=== PATIENT | female | born 1975 | race Caucasian/White ===

== ENCOUNTER 2019-08-11 21:05 | Emergency (ER) | payer MEDICAID ==
[~2019-08-11] VITALS: Ht 165.1 cm; Wt 68.2 kg
[2019-08-11] MEDS ORDERED: IBUP-1984 PO (22:29)
[2019-08-11] MEDS ORDERED: AMOX-580 PO (22:29)
[2019-08-11 22:33] VITALS: BP 129/84
== END 2019-08-11 22:37 | disposition home or self-care (01) ==
LOC: ER 21:06
DX: J06.9 Acute upper respiratory infection, unspecified (principal); J32.0 Chronic maxillary sinusitis; I10 Essential (primary) hypertension; J45.909 Unspecified asthma, uncomplicated; Z88.5 Allergy status to narcotic agent; Z88.6 Allergy status to analgesic agent
CPT/HCPCS: 99284

== ENCOUNTER 2019-08-11 22:59 | Emergency (ER) | payer MEDICAID ==
[~2019-08-11] VITALS: Ht 165.1 cm; Wt 68.2 kg
[~2019-08-11 22:59] MED LIST: AMOX-580 PO; IBUP-1984 PO
[2019-08-11 23:18] VITALS: BP 153/84
[2019-08-12 00:05] LABS: URINE HCG NEGATIVE (NEG)
--- NOTE | 2019-08-12 00:16 | NUR ---
Pt. returning for a chest x-ray after recent discharge
== END 2019-08-12 01:07 | disposition home or self-care (01) ==
LOC: ER 23:00
DX: Z00.00 Encounter for general adult medical examination without abnormal findings (principal); I10 Essential (primary) hypertension; J45.909 Unspecified asthma, uncomplicated; Z88.5 Allergy status to narcotic agent; Z88.6 Allergy status to analgesic agent
CPT/HCPCS: 81025; 99284

== ENCOUNTER 2019-08-24 01:57 | Emergency (ER) | payer MEDICAID ==
[~2019-08-24] VITALS: Ht 165.1 cm; Wt 70.0 kg
[2019-08-24 03:07] LABS: BASOPHILS # (AUTO) 0.1 X10'3 (0-0.2); BASOPHILS % (AUTO) 0.7 % (0-1); EOSINOPHILS # (AUTO) 0.1 X10'3 (0-0.9); EOSINOPHILS % (AUTO) 1.1 % (0-6); HEMATOCRIT 40.7 % (35.0-45.0); HEMOGLOBIN 13.6 g/dl (12.0-16.0); LYMPHOCYTES % (AUTO) 26.7 % (21-51); MEAN CORPUSCULAR HEMOGLOBIN 28.7 PG (27.0-31.0); MEAN CORPUSCULAR HGB CONC 33.3 g/dL (33.0-36.5); MEAN CORPUSCULAR VOLUME 85.9 FL (78-98); MONOCYTES # (AUTO) 0.4 X10'3 (0-0.9); MONOCYTES % (AUTO) 5.4 % (2-12); NEUTROPHILS # (AUTO) 4.9 X10'3 (1.8-7.7); NEUTROPHILS % (AUTO) 66.1 % (42-75); PLATELET COUNT 210 X10'3 (140-440); RED BLOOD COUNT 4.73 X10'6 (4.20-5.60); RED CELL DISTRIBUTION WIDTH 13.8 % (11.5-14.5); WHITE BLOOD COUNT 7.5 X10'3 (4.5-11.0)
[2019-08-24 03:15] LABS: ALANINE AMINOTRANSFERASE 20 U/L (12-78); ALBUMIN 3.3 G/DL (3.4-5.0); ALBUMIN/GLOBULIN RATIO 0.8 (1.1-1.5); ALKALINE PHOSPHATASE 71 IU/L (46-116); ANION GAP 7 (8-16); ASPARTATE AMINO TRANSFERASE 16 U/L (10-37); BILIRUBIN,TOTAL 0.1 MG/DL (0.1-1.0); BLOOD UREA NITROGEN 13 MG/DL (7-18); BUN/CREATININE RATIO 20.6 (6.6-38.0); CALCIUM 8.3 MG/DL (8.5-10.1); CHLORIDE 105 MMOL/L (99-107); CREATININE 0.63 MG/DL (0.40-0.90); GLUCOSE 96 MG/DL (70-104); POTASSIUM 3.5 MMOL/L (3.5-5.1); SODIUM 139 MMOL/L (135-145); TOTAL CARBON DIOXIDE 26.9 MMOL/L (24-32); TOTAL PROTEIN 7.2 G/DL (6.4-8.2); eGFR > 90 ML/MIN
[2019-08-24] MEDS ORDERED: AZIT-63 PO (03:28)
[2019-08-24] MEDS ORDERED: ALBU8.5H8 IH (03:28)
[2019-08-24] MEDS ORDERED: ketorolac trometh. 30mg/ml inj. IM ONE (03:30)
[2019-08-24] MEDS ORDERED: azithromycin 250mg tablet PO ONE (03:30)
[2019-08-24 03:48] VITALS: BP 121/77
== END 2019-08-24 03:50 | disposition home or self-care (01) ==
LOC: ER 01:58
DX: J40 Bronchitis, not specified as acute or chronic (principal); I10 Essential (primary) hypertension; Z87.09 Personal history of other diseases of the respiratory system; F17.210 Nicotine dependence, cigarettes, uncomplicated; Z98.890 Other specified postprocedural states; Z88.5 Allergy status to narcotic agent; Z88.6 Allergy status to analgesic agent; Z79.899 Other long term (current) drug therapy
CPT/HCPCS: 36415; 71046; 80053; 85025; 87040; 93005; 96372; 99284; J1885

== ENCOUNTER 2019-09-08 13:29 | Emergency (ER) | payer MEDICAID ==
[~2019-09-08] VITALS: Ht 165.1 cm; Wt 62.0 kg
[~2019-09-08 13:29] MED LIST changes: +ALBU8.5H8 IH; -AMOX-580 PO; +AZIT-63 PO; -IBUP-1984 PO
[2019-09-08] MEDS ORDERED: CLIN-90 PO (14:33)
[2019-09-08 14:46] VITALS: BP 130/90
== END 2019-09-08 14:54 | disposition home or self-care (01) ==
LOC: ER 13:29
DX: R22.0 Localized swelling, mass and lump, head (principal); R06.02 Shortness of breath; K08.89 Other specified disorders of teeth and supporting structures; I10 Essential (primary) hypertension; F17.210 Nicotine dependence, cigarettes, uncomplicated; Z87.440 Personal history of urinary (tract) infections; Z88.5 Allergy status to narcotic agent; Z88.6 Allergy status to analgesic agent; Z79.899 Other long term (current) drug therapy
CPT/HCPCS: 99284

== ENCOUNTER 2019-09-16 14:15 | Emergency (ER) | payer MEDICAID ==
[~2019-09-16] VITALS: Ht 165.1 cm; Wt 68.2 kg
[~2019-09-16 14:15] MED LIST changes: -AZIT-63 PO; +CLIN-90 PO
[2019-09-16] MEDS ORDERED: METH-360 PO (14:18)
[2019-09-16] MEDS ORDERED: ketorolac tromethamine 15mg/ml inj. IM ONE (14:20)
[2019-09-16 14:24] VITALS: BP 162/90
== END 2019-09-16 15:08 | disposition home or self-care (01) ==
LOC: ER 14:15
DX: S39.012A Strain of muscle, fascia and tendon of lower back, initial encounter (principal); S29.012A Strain of muscle and tendon of back wall of thorax, initial encounter; I10 Essential (primary) hypertension; J45.909 Unspecified asthma, uncomplicated; M06.9 Rheumatoid arthritis, unspecified; Z88.5 Allergy status to narcotic agent; Z79.2 Long term (current) use of antibiotics; X58.XXXA Exposure to other specified factors, initial encounter; Y93.89 Activity, other specified; Y92.89 Other specified places as the place of occurrence of the external cause; Y99.9 Unspecified external cause status
CPT/HCPCS: 96372; 99284; J1885

== ENCOUNTER 2019-09-27 14:56 | Emergency (ER) | payer MEDICAID ==
[~2019-09-27] VITALS: Ht 165.1 cm; Wt 77.6 kg
[~2019-09-27 14:56] MED LIST changes: +METH-360 PO
[2019-09-27 15:08] VITALS: BP 104/61
[2019-09-27 16:21] LABS: BASOPHILS % (AUTO) 0.6 % (0-1); EOSINOPHILS # (AUTO) 0.1 X10'3 (0-0.9); EOSINOPHILS % (AUTO) 0.9 % (0-6); HEMATOCRIT 40.5 % (35.0-45.0); HEMOGLOBIN 13.7 g/dl (12.0-16.0); LYMPHOCYTES # (AUTO) 1.2 X10'3 (1.1-4.8); LYMPHOCYTES % (AUTO) 15.4 % (21-51); MEAN CORPUSCULAR HEMOGLOBIN 29.2 PG (27.0-31.0); MEAN CORPUSCULAR HGB CONC 33.8 g/dL (33.0-36.5); MEAN CORPUSCULAR VOLUME 86.3 FL (78-98); MONOCYTES # (AUTO) 0.4 X10'3 (0-0.9); MONOCYTES % (AUTO) 4.9 % (2-12); NEUTROPHILS % (AUTO) 78.2 % (42-75); PLATELET COUNT 213 X10'3 (140-440); RED BLOOD COUNT 4.69 X10'6 (4.20-5.60); RED CELL DISTRIBUTION WIDTH 14.4 % (11.5-14.5); WHITE BLOOD COUNT 7.6 X10'3 (4.5-11.0)
[2019-09-27 16:22] LABS: CLARITY,URINE SLIGHTLY CLOUDY (Clear); COLOR,URINE YELLOW (Yellow); GLUCOSE, URINE NEGATIVE (Neg); KETONES,URINE TRACE mg/dl (Neg); LEUKOCYTE ESTERASE ,URINE NEGATIVE (Neg); NITRITES, URINE POSITIVE (Neg); OCCULT BLOOD,URINE LARGE (Neg); PROTEIN,URINE 30 mg/dl (Neg); URINE HCG NEGATIVE (NEG); UROBILINOGEN,URINE 0.2 E.U/dL (0.2-1.0)
[2019-09-27 16:22] LABS: ALANINE AMINOTRANSFERASE 14 U/L (12-78); ALBUMIN 3.7 G/DL (3.4-5.0); ALKALINE PHOSPHATASE 62 IU/L (46-116); ANION GAP 10 (8-16); ASPARTATE AMINO TRANSFERASE 13 U/L (10-37); BILIRUBIN,TOTAL 0.2 MG/DL (0.1-1.0); BLOOD UREA NITROGEN 9 MG/DL (7-18); BUN/CREATININE RATIO 10.7 (6.6-38.0); CALCIUM 9.1 MG/DL (8.5-10.1); CHLORIDE 106 MMOL/L (99-107); CREATININE 0.84 MG/DL (0.40-0.90); GLUCOSE 109 MG/DL (70-104); LIPASE 71 U/L (73-393); POTASSIUM 3.5 MMOL/L (3.5-5.1); SODIUM 144 MMOL/L (135-145); TOTAL CARBON DIOXIDE 28.4 MMOL/L (24-32); TOTAL PROTEIN 7.3 G/DL (6.4-8.2); eGFR 74 ML/MIN
[2019-09-27 16:27] LABS: UA COLLECTION TYPE CLN CATCH MIDSTREAM
[2019-09-27 16:30] LABS: BACTERIA,URINE 3+ /HPF (Neg); MUCUS STRANDS FEW /LPF (Neg); RBC,URINE TNTC /HPF (0-2); SQUAMOUS EPITHELIAL CELL,UR MODERATE /LPF (FEW); WBC,URINE 30-50 /HPF (0-4)
[2019-09-27 16:31] LABS: CAL OXALATE CRYSTALS 2+ /HPF (NEGATIVE)
== END 2019-09-27 21:47 | disposition left against medical advice (07) ==
LOC: ER 14:57
DX: R10.9 Unspecified abdominal pain (principal); Z53.21 Procedure and treatment not carried out due to patient leaving prior to being seen by health care provider
CPT/HCPCS: 36415; 80053; 81001; 81025; 83690; 85025; 87077; 87088; 87186

== ENCOUNTER 2019-11-26 09:48 | Emergency (ER) | payer MEDICAID ==
[~2019-11-26] VITALS: Ht 165.1 cm; Wt 72.0 kg
[~2019-11-26 09:48] MED LIST changes: -CLIN-90 PO; +CLIN-97 PO
[2019-11-26] MEDS ORDERED: acetaminophen 325mg tablet PO ONE (10:15)
[2019-11-26 11:16] VITALS: BP 132/89
== END 2019-11-26 11:18 | disposition home or self-care (01) ==
LOC: ER 09:49
DX: S91.201A Unspecified open wound of right great toe with damage to nail, initial encounter (principal); S60.811A Abrasion of right wrist, initial encounter; R07.81 Pleurodynia; I10 Essential (primary) hypertension; J45.909 Unspecified asthma, uncomplicated; M19.90 Unspecified osteoarthritis, unspecified site; G89.29 Other chronic pain; F41.9 Anxiety disorder, unspecified; F32.9 Major depressive disorder, single episode, unspecified; Z59.0 Homelessness; Z98.890 Other specified postprocedural states; Z88.5 Allergy status to narcotic agent; Z88.8 Allergy status to other drugs, medicaments and biological substances; Z79.899 Other long term (current) drug therapy; Y09 Assault by unspecified means; Y93.89 Activity, other specified; Y92.89 Other specified places as the place of occurrence of the external cause; Y99.8 Other external cause status
CPT/HCPCS: 71100; 99283

== ENCOUNTER 2021-04-26 15:27 | Emergency (ER) | payer MEDICAID ==
[~2021-04-26] VITALS: Ht 165.1 cm; Wt 68.2 kg
[~2021-04-26 15:27] MED LIST changes: +ALBU8.5H17 IH; -ALBU8.5H8 IH
[2021-04-26 15:43] VITALS: BP 136/77
[2021-04-26] MEDS ORDERED: IBUP-1984 PO (16:14)
[2021-04-26] MEDS ORDERED: ACET-1008 PO (16:14)
[2021-04-26] MEDS ORDERED: ketorolac trometh. 30mg/ml inj. IM ONE (16:15)
[2021-04-27] MEDS ORDERED: ORPH100T2 PO (14:52)
== END 2021-04-26 16:37 | disposition home or self-care (01) ==
LOC: ER 15:27
DX: M54.41 Lumbago with sciatica, right side (principal); I10 Essential (primary) hypertension; J45.909 Unspecified asthma, uncomplicated; M19.90 Unspecified osteoarthritis, unspecified site; G89.29 Other chronic pain; Z59.0 Homelessness; Z87.440 Personal history of urinary (tract) infections; Z79.2 Long term (current) use of antibiotics; Z79.899 Other long term (current) drug therapy; Z88.8 Allergy status to other drugs, medicaments and biological substances; Z91.040 Latex allergy status
CPT/HCPCS: 96372; 99283; J1885

== ENCOUNTER 2021-04-27 11:53 | Emergency (ER) | payer MEDICAID ==
[~2021-04-27] VITALS: Ht 165.1 cm; Wt 68.2 kg
[~2021-04-27 11:53] MED LIST changes: +ACET-1008 PO; +IBUP-1984 PO
[2021-04-27] MEDS ORDERED: HYDROcodone/acetaminophen 5mg/325mg tablet PO ONE (14:40)
[2021-04-27] MEDS ORDERED: orphenadrine citrate 60mg/2ml inj. IM ONE (14:40)
[2021-04-27] MEDS ORDERED: ketorolac trometh. 30mg/ml inj. IM ONE (14:40)
[2021-04-27] MEDS ORDERED: ORPH100T2 PO (14:52)
[2021-04-27 15:10] VITALS: BP 175/100
== END 2021-04-27 15:12 | disposition home or self-care (01) ==
LOC: ER 11:53
DX: M48.061 Spinal stenosis, lumbar region without neurogenic claudication (principal); M54.30 Sciatica, unspecified side; M06.9 Rheumatoid arthritis, unspecified; I10 Essential (primary) hypertension; J45.909 Unspecified asthma, uncomplicated; M19.90 Unspecified osteoarthritis, unspecified site; G89.29 Other chronic pain; F41.9 Anxiety disorder, unspecified; F32.9 Major depressive disorder, single episode, unspecified; Z87.440 Personal history of urinary (tract) infections; Z98.890 Other specified postprocedural states; Z59.0 Homelessness; Z88.5 Allergy status to narcotic agent; Z88.8 Allergy status to other drugs, medicaments and biological substances; Z79.2 Long term (current) use of antibiotics; Z79.899 Other long term (current) drug therapy
CPT/HCPCS: 72100; 96372; 99284; J1885; J2360

== ENCOUNTER 2021-08-12 07:13 | Emergency (ER) | payer MEDICAID ==
[~2021-08-12] VITALS: Ht 165.1 cm; Wt 68.2 kg
[~2021-08-12 07:13] MED LIST changes: -ACET-1008 PO; -IBUP-1984 PO; +ORPH100T2 PO
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
[2021-08-12] MEDS ORDERED: aspirin 81mg tab.chew PO ONE (09:05)
[2021-08-12] MEDS ORDERED: ketorolac trometh. 30mg/ml inj. IV ONE (09:05)
[2021-08-12] MEDS ORDERED: acetaminophen 325mg tablet PO ONE (09:05)
[2021-08-12] MEDS ORDERED: normal saline 1000ml 1,000 ML IV ONE (09:05)
[2021-08-12] MEDS ORDERED: metoclopramide 5 mg/ml inj IV ONE (09:05)
[2021-08-12 09:26] LABS: BASOPHILS % (AUTO) 0.2 % (0-1); EOSINOPHILS % (AUTO) 0.5 % (0-6); HEMOGLOBIN 13.6 g/dl (12.0-16.0); LYMPHOCYTES # (AUTO) 0.3 X10'3 (1.1-4.8); LYMPHOCYTES % (AUTO) 3.7 % (21-51); MEAN CORPUSCULAR HEMOGLOBIN 28.5 PG (27.0-31.0); MEAN CORPUSCULAR HGB CONC 33.2 g/dL (33.0-36.5); MEAN PLATELET VOLUME 8.1 FL (7.4-10.4); MONOCYTES # (AUTO) 0.6 X10'3 (0-0.9); MONOCYTES % (AUTO) 6.7 % (2-12); NEUTROPHILS # (AUTO) 7.7 X10'3 (1.8-7.7); NEUTROPHILS % (AUTO) 88.9 % (42-75); PLATELET COUNT 212 X10'3 (140-440); RED BLOOD COUNT 4.76 X10'6 (4.20-5.60); RED CELL DISTRIBUTION WIDTH 14.2 % (11.5-14.5); WHITE BLOOD COUNT 8.7 X10'3 (4.5-11.0)
[2021-08-12 09:39] LABS: D-DIMER 0.59 MG/L FEU (0-0.50)
[2021-08-12 09:42] LABS: ALBUMIN 3.6 G/DL (3.4-5.0); ALBUMIN/GLOBULIN RATIO 0.9 (1.1-1.5); ALKALINE PHOSPHATASE 70 IU/L (46-116); ANION GAP 10 (8-16); ASPARTATE AMINO TRANSFERASE 19 U/L (10-37); BILIRUBIN,TOTAL 0.3 MG/DL (0.1-1.0); BLOOD UREA NITROGEN 6 MG/DL (7-18); BUN/CREATININE RATIO 10.3 (6.6-38.0); CALCIUM 8.7 MG/DL (8.5-10.1); CHLORIDE 103 MMOL/L (99-107); CREATININE 0.58 MG/DL (0.40-0.90); GLUCOSE 91 MG/DL (70-104); POTASSIUM 3.7 MMOL/L (3.5-5.1); SODIUM 139 MMOL/L (135-145); TOTAL CARBON DIOXIDE 25.6 MMOL/L (24-32); TOTAL PROTEIN 7.8 G/DL (6.4-8.2); eGFR > 90 ML/MIN
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
--- NOTE | 2021-08-12 10:15 | NUR ---
TO CT SCAN.
[2021-08-12 10:18] LABS: ALANINE AMINOTRANSFERASE 19 U/L (12-78)
--- NOTE | 2021-08-12 10:29 | NUR ---
PT BACK FROM CT SCAN.
[2021-08-12 11:21] LABS: BETA HCG,QUANTITATIVE < 1.0 mIU/ml
[2021-08-12 11:40] VITALS: BP 169/94
--- NOTE | 2021-08-12 11:42 | NUR ---
Pt given and understands d/c instructions. IV d/c'd, catheter was intact.
== END 2021-08-12 11:42 | disposition home or self-care (01) ==
LOC: ER 07:15
DX: S06.0X0A Concussion without loss of consciousness, initial encounter (principal); R07.89 Other chest pain; R11.0 Nausea; I10 Essential (primary) hypertension; J45.909 Unspecified asthma, uncomplicated; M19.90 Unspecified osteoarthritis, unspecified site; G89.29 Other chronic pain; F41.9 Anxiety disorder, unspecified; F32.9 Major depressive disorder, single episode, unspecified; F15.90 Other stimulant use, unspecified, uncomplicated; Z87.440 Personal history of urinary (tract) infections; Z98.890 Other specified postprocedural states; Z59.00 Homelessness unspecified; Z88.5 Allergy status to narcotic agent; Z88.8 Allergy status to other drugs, medicaments and biological substances; Z79.2 Long term (current) use of antibiotics; Z79.899 Other long term (current) drug therapy; X58.XXXA Exposure to other specified factors, initial encounter; Y93.89 Activity, other specified; Y92.89 Other specified places as the place of occurrence of the external cause; Y99.8 Other external cause status
CPT/HCPCS: 36415; 70486; 71045; 72125; 80053; 83735; 83880; 84484; 84702; 85025; 85379; 93005; 96361; 96374; 96375; 99285; J1885; J2765; J7030

== ENCOUNTER 2021-10-23 12:21 | Emergency (ER) | payer MEDICAID ==
[~2021-10-23] VITALS: Ht 165.1 cm; Wt 68.2 kg
[2021-10-23 12:26] VITALS: BP 169/87
== END 2021-10-23 13:59 | disposition home or self-care (01) ==
LOC: ER 12:23
DX: L98.491 Non-pressure chronic ulcer of skin of other sites limited to breakdown of skin (principal); R50.9 Fever, unspecified; I10 Essential (primary) hypertension; J45.909 Unspecified asthma, uncomplicated; M19.90 Unspecified osteoarthritis, unspecified site; G89.29 Other chronic pain; F17.200 Nicotine dependence, unspecified, uncomplicated; F15.90 Other stimulant use, unspecified, uncomplicated; M06.9 Rheumatoid arthritis, unspecified; Z87.440 Personal history of urinary (tract) infections; Z86.14 Personal history of Methicillin resistant Staphylococcus aureus infection; Z59.00 Homelessness unspecified; Z88.8 Allergy status to other drugs, medicaments and biological substances; Z79.2 Long term (current) use of antibiotics; Z79.899 Other long term (current) drug therapy
CPT/HCPCS: 99281

== ENCOUNTER 2021-10-24 18:57 | Emergency (ER) | payer MEDICAID ==
[~2021-10-24] VITALS: Ht 165.1 cm; Wt 72.7 kg
[2021-10-24 19:06] VITALS: BP 184/97
[2021-10-25 00:24] LABS: CLARITY,URINE CLEAR (Clear); COLOR,URINE YELLOW (Yellow); GLUCOSE, URINE NEGATIVE (Neg); KETONES,URINE NEGATIVE (Neg); LEUKOCYTE ESTERASE ,URINE NEGATIVE (Neg); NITRITES, URINE NEGATIVE (Neg); OCCULT BLOOD,URINE TRACE-INTACT (Neg); PROTEIN,URINE NEGATIVE (Neg); URINE HCG NEGATIVE (NEG); UROBILINOGEN,URINE 0.2 E.U/dL (0.2-1.0)
[2021-10-25 00:29] LABS: UA COLLECTION TYPE NON-SPECIFIED
[2021-10-25 00:30] LABS: BACTERIA,URINE FEW /HPF (Neg); RBC,URINE NONE SEEN /HPF (0-2); SQUAMOUS EPITHELIAL CELL,UR FEW /LPF (FEW); WBC,URINE 0-4 /HPF (0-4)
[2021-10-25] MEDS ORDERED: TETanus/Pertussis (Acell)/Diphther VAC/PF (Tdap-Adult) 0.5ml syringe IMVAC ONE (00:55)
[2021-10-25] MEDS ORDERED: LIDOcaine 1% 30ml preserv. free vial IJ ONE (00:55)
[2021-10-25] MEDS ORDERED: LIDOcaine 1% W/epiNEPHrine 1:100,000 20ml vial SQ ONE (01:05)
[2021-10-25] MEDS ORDERED: LIDOCAINE 2% (20mg/ml) w/EPINEPHRINE 1:200,000-PF 10 ML inj. SQ ONE (01:15)
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
--- NOTE | 2021-10-25 01:30 | NUR ---
3 SUTURES PLACED POSTERIOR HEAD
== END 2021-10-25 01:49 | disposition home or self-care (01) ==
LOC: ER 18:58
DX: S01.01XA Laceration without foreign body of scalp, initial encounter (principal); S00.81XA Abrasion of other part of head, initial encounter; I10 Essential (primary) hypertension; J45.909 Unspecified asthma, uncomplicated; G89.29 Other chronic pain; M19.90 Unspecified osteoarthritis, unspecified site; F15.90 Other stimulant use, unspecified, uncomplicated; Z87.440 Personal history of urinary (tract) infections; Z86.14 Personal history of Methicillin resistant Staphylococcus aureus infection; Z59.00 Homelessness unspecified; Z88.8 Allergy status to other drugs, medicaments and biological substances; Z79.2 Long term (current) use of antibiotics; Z79.899 Other long term (current) drug therapy; Y00.XXXA Assault by blunt object, initial encounter; Y93.89 Activity, other specified; Y92.89 Other specified places as the place of occurrence of the external cause; Y99.8 Other external cause status
CPT/HCPCS: 12002; 70450; 72125; 81001; 81025; 90715; 99284; 99285

== ENCOUNTER 2021-11-06 11:04 | Emergency (ER) | payer MEDICAID ==
[~2021-11-06] VITALS: Ht 165.1 cm; Wt 70.1 kg
[2021-11-06 11:23] VITALS: BP 212/115
[2021-11-06] MEDS ORDERED: CEPH-585 PO (12:37)
[2021-11-06] MEDS ORDERED: MUPI22OI30 TOP (12:37)
== END 2021-11-06 13:04 | disposition home or self-care (01) ==
LOC: ER 11:05
DX: S91.105A Unspecified open wound of left lesser toe(s) without damage to nail, initial encounter (principal); S91.104A Unspecified open wound of right lesser toe(s) without damage to nail, initial encounter; L03.031 Cellulitis of right toe; S01.01XD Laceration without foreign body of scalp, subsequent encounter; R03.0 Elevated blood-pressure reading, without diagnosis of hypertension; I10 Essential (primary) hypertension; J45.909 Unspecified asthma, uncomplicated; M19.90 Unspecified osteoarthritis, unspecified site; F15.90 Other stimulant use, unspecified, uncomplicated; G89.29 Other chronic pain; Z87.440 Personal history of urinary (tract) infections; Z86.14 Personal history of Methicillin resistant Staphylococcus aureus infection; Z48.02 Encounter for removal of sutures; Z59.00 Homelessness unspecified; Z88.8 Allergy status to other drugs, medicaments and biological substances; Z79.2 Long term (current) use of antibiotics; Z79.899 Other long term (current) drug therapy; X58.XXXA Exposure to other specified factors, initial encounter; Y93.89 Activity, other specified; Y92.89 Other specified places as the place of occurrence of the external cause; Y99.8 Other external cause status
CPT/HCPCS: 99283

== ENCOUNTER 2021-11-20 12:51 | Emergency (ER) | payer MEDICAID ==
[~2021-11-20] VITALS: Ht 165.1 cm; Wt 70.0 kg
[~2021-11-20 12:51] MED LIST changes: +CEPH-585 PO
[2021-11-20 13:03] VITALS: BP 155/96
== END 2021-11-20 13:40 | disposition home or self-care (01) ==
LOC: ER 12:51
DX: S91.105A Unspecified open wound of left lesser toe(s) without damage to nail, initial encounter (principal); S91.104A Unspecified open wound of right lesser toe(s) without damage to nail, initial encounter; S90.425A Blister (nonthermal), left lesser toe(s), initial encounter; S90.424A Blister (nonthermal), right lesser toe(s), initial encounter; I10 Essential (primary) hypertension; J45.909 Unspecified asthma, uncomplicated; M19.90 Unspecified osteoarthritis, unspecified site; G89.29 Other chronic pain; F41.9 Anxiety disorder, unspecified; F32.A Depression, unspecified; F15.90 Other stimulant use, unspecified, uncomplicated; Z87.440 Personal history of urinary (tract) infections; Z86.14 Personal history of Methicillin resistant Staphylococcus aureus infection; Z98.890 Other specified postprocedural states; Z59.00 Homelessness unspecified; Z88.5 Allergy status to narcotic agent; Z88.8 Allergy status to other drugs, medicaments and biological substances; Z79.2 Long term (current) use of antibiotics; Z79.899 Other long term (current) drug therapy; X58.XXXA Exposure to other specified factors, initial encounter; Y93.89 Activity, other specified; Y92.89 Other specified places as the place of occurrence of the external cause; Y99.8 Other external cause status
CPT/HCPCS: 99281

== ENCOUNTER 2022-01-07 12:26 | Emergency (ER) | payer MEDICAID ==
[~2022-01-07] VITALS: Ht 165.1 cm; Wt 70.0 kg
[2022-01-07 12:37] VITALS: BP 165/99
[2022-01-07 13:03] LABS: BASOPHILS % (AUTO) 0.6 % (0-1); EOSINOPHILS % (AUTO) 0.6 % (0-6); HEMATOCRIT 41.4 % (35.0-45.0); HEMOGLOBIN 13.9 g/dl (12.0-16.0); MEAN CORPUSCULAR HEMOGLOBIN 28.5 PG (27.0-31.0); MEAN CORPUSCULAR HGB CONC 33.5 g/dL (33.0-36.5); MEAN CORPUSCULAR VOLUME 85.1 FL (78-98); MEAN PLATELET VOLUME 8.4 FL (7.4-10.4); MONOCYTES # (AUTO) 0.6 X10'3 (0-0.9); MONOCYTES % (AUTO) 7.3 % (2-12); NEUTROPHILS # (AUTO) 5.2 X10'3 (1.8-7.7); NEUTROPHILS % (AUTO) 66.5 % (42-75); PLATELET COUNT 200 X10'3 (140-440); RED BLOOD COUNT 4.87 X10'6 (4.20-5.60); WHITE BLOOD COUNT 7.9 X10'3 (4.5-11.0)
[2022-01-07 13:17] LABS: ALANINE AMINOTRANSFERASE 16 U/L (12-78); ALBUMIN 3.7 G/DL (3.4-5.0); ALBUMIN/GLOBULIN RATIO 0.9 (1.1-1.5); ALKALINE PHOSPHATASE 69 IU/L (46-116); ANION GAP 6 (8-16); ASPARTATE AMINO TRANSFERASE 16 U/L (10-37); BILIRUBIN,TOTAL 0.5 MG/DL (0.1-1.0); BLOOD UREA NITROGEN 11 MG/DL (7-18); BUN/CREATININE RATIO 14.1 (6.6-38.0); CALCIUM 8.6 MG/DL (8.5-10.1); CHLORIDE 105 MMOL/L (99-107); CREATININE 0.78 MG/DL (0.40-0.90); GLUCOSE 89 MG/DL (70-104); LIPASE 62 U/L (73-393); POTASSIUM 3.5 MMOL/L (3.5-5.1); SODIUM 141 MMOL/L (135-145); TOTAL CARBON DIOXIDE 29.9 MMOL/L (24-32); TOTAL PROTEIN 7.6 G/DL (6.4-8.2); eGFR 80 ML/MIN
== END 2022-01-07 16:30 | disposition left against medical advice (07) ==
LOC: ER 12:27
DX: R11.0 Nausea (principal); Z53.21 Procedure and treatment not carried out due to patient leaving prior to being seen by health care provider
CPT/HCPCS: 36415; 80053; 83690; 85025